=== PATIENT | female | born 1985 | race Caucasian/White ===

== ENCOUNTER 2020-12-25 04:26 | Emergency (ER) | payer OTHER ==
[2020-12-25 05:01] LABS: HEMOGLOBIN 11.4 gm/dl (12.3-15.3); RED BLOOD COUNT 3.97 M/UL (4.00-5.10); WHITE BLOOD COUNT 4.2 K/UL (4.5-11.0)
[2020-12-25 05:11] LABS: BUN/CREATININE RATIO 12 (0-10)
== END 2020-12-25 07:15 | disposition home or self-care (01) ==
LOC: ER1 04:26
PROVIDERS: Internal Medicine
DX: O20.0 Threatened abortion (principal); Z3A.01 Less than 8 weeks gestation of pregnancy
CPT/HCPCS: 76815; 80053; 81001; 84702; 85025; 86900; 86901; 99284

== ENCOUNTER 2021-01-24 16:59 | Emergency (ER) | payer OTHER ==
[2021-01-24 20:21] LABS: HEMOGLOBIN 10.7 gm/dl (12.3-15.3); RED BLOOD COUNT 3.72 M/UL (4.00-5.10); WHITE BLOOD COUNT 5.4 K/UL (4.5-11.0)
[2021-01-24 20:40] LABS: BUN/CREATININE RATIO 10 (0-10)
== END 2021-01-24 21:55 | disposition home or self-care (01) ==
LOC: ER1 16:59
PROVIDERS: Family Medicine
DX: O03.9 Complete or unspecified spontaneous abortion without complication (principal); Z3A.10 10 weeks gestation of pregnancy
CPT/HCPCS: 80053; 84702; 85025; 86900; 86901; 99284

== ENCOUNTER 2021-07-17 15:54 | Outpatient (CLI) | payer OTHER | END 2021-07-17 18:22 | disposition home or self-care (01) | LOC: GENOP 15:54 | DX: O47.03 False labor before 37 completed weeks of gestation, third trimester (principal); O99.013 Anemia complicating pregnancy, third trimester; D64.9 Anemia, unspecified; O23.43 Unspecified infection of urinary tract in pregnancy, third trimester; N39.0 Urinary tract infection, site not specified; O99.213 Obesity complicating pregnancy, third trimester; E66.9 Obesity, unspecified; Z3A.35 35 weeks gestation of pregnancy | CPT/HCPCS: 81001; G0463 ==

== ENCOUNTER 2021-08-02 16:55 | Inpatient (IN) | payer OTHER ==
[~2021-08-02] VITALS: Ht 162.6 cm; Wt 123.8 kg
[2021-08-02] MEDS ORDERED: IRON325 M1 PO (18:11)
[2021-08-02] MEDS ORDERED: PRENATABS FA T1 EACH PO (18:12)
[2021-08-02 18:18] LABS: HEMOGLOBIN 9.9 gm/dl (12.3-15.3); RED BLOOD COUNT 3.4 M/UL (4.00-5.10)
[2021-08-03] MEDS ORDERED: PERCOCET 5/325 T1 EA PO (19:10)
[2021-08-03] MEDS ORDERED: COLACE100 MG PO (19:10)
[2021-08-03] MEDS ORDERED: IBUPROFEN800 MG PO (19:10)
[2021-08-03] MEDS ORDERED: HEMOCYTE324 MG PO (19:10)
[2021-08-04 04:34] LABS: HEMOGLOBIN 8.8 gm/dl (12.3-15.3)
== END 2021-08-05 17:30 | disposition home or self-care (01) | DRG 787 ==
LOC: GENOP 16:55 → OB 17:10
PROVIDERS: Obstetrics & Gynecology; ADMIT Obstetrics & Gynecology
PROC: 10D00Z1 Extraction of Products of Conception, Low, Open Approach (ICD-10-PCS; principal; 2021-08-03 18:02)
DX: O99.214 Obesity complicating childbirth (principal); D62 Acute posthemorrhagic anemia; E66.01 Morbid (severe) obesity due to excess calories; O32.2XX0 Maternal care for transverse and oblique lie, not applicable or unspecified; O24.429 Gestational diabetes mellitus in childbirth, unspecified control; O99.02 Anemia complicating childbirth; Z37.0 Single live birth; Z3A.37 37 weeks gestation of pregnancy; Z98.84 Bariatric surgery status; Z86.16 Personal history of COVID-19
CPT/HCPCS: 36415; 80053; 80307; 81001; 82962; 85014; 85018; 85025; 86705; C9113; J0690; J1885; J2250; J2274; J2370; J2405; J2590; J2765; J3010; J7030; J7050; J7120